=== PATIENT | male | born 1985 | race Caucasian/White ===

== ENCOUNTER 2019-08-25 15:17 | Emergency (ER) | payer OTHER ==
[~2019-08-25] VITALS: Ht 175.3 cm; Wt 77.1 kg
[2019-08-25] MEDS ORDERED: LORAZEPAM INJ 2 MG/ML VIAL IM ONE (16:00)
[2019-08-25 16:08] LABS: BASOPHILS % (AUTO) 0.8 % (0.0-2.0); EOSINOPHILS % (AUTO) 1.3 % (0.0-6.0); HEMATOCRIT 44 % (39-51); HEMOGLOBIN 15.1 g/dL (13.5-17.5); LYMPHOCYTES # (AUTO) 2.1 /CMM (0.8-4.8); LYMPHOCYTES % (AUTO) 33.9 % (20.0-44.0); MEAN CORPUSCULAR HGB CONC 34 g/dl (31.0-36.0); MEAN CORPUSCULAR VOLUME 96 fL (80-96); MONOCYTES # (AUTO) 0.7 /CMM (0.1-1.30); MONOCYTES % (AUTO) 10.9 % (2.0-12.0); NEUTROPHILS # (AUTO) 3.3 /CMM (1.8-8.9); NEUTROPHILS % (AUTO) 53.1 % (43.0-81.0); PLATELET COUNT (AUTO) 225 /CMM (150-450); RED BLOOD CELL COUNT(AUTO) 4.62 MIL/uL (4.5-6.0); WHITE BLOOD COUNT (AUTO) 6.2 K/uL (4.3-11.0)
[2019-08-25 16:10] LABS: BILIRUBIN,URINE Negative (NEGATIVE); BLOOD, URINE Negative Ery/uL (NEGATIVE); COLOR,URINE Yellow (YELLOW); KETONES,URINE Trace (NEGATIVE); LEUKOCYTE ESTERASE ,URINE Negative (NEGATIVE); NITRITE, URINE Negative (NEGATIVE); PROTEIN,URINE Negative (NEGATIVE); UGLUCOSE Negative (NEGATIVE)
[2019-08-25 16:13] LABS: APPEARANCE,URINE HAZY (CLEAR)
[2019-08-25 16:14] LABS: BACTERIA,URINE Rare /HPF (None Seen); RBC,URINE 0-2 /HPF (0-2); SQUAMOUS EPITHELIAL CELL,UR Rare /HPF (None Seen); URINE AMORPHOUS PHOSPHATES Moderate /HPF (None Seen); WBC,URINE 0-2 /HPF (0-3)
[2019-08-25] MEDS ORDERED: LORAZEPAM INJ 2 MG/ML VIAL ONE (16:15)
--- NOTE | 2019-08-25 16:29 | NUR ---
c/o depression, SI +plan "overdose on heroin.". PT AAOX3, VSS. RR EVEN & UNLABORED. DENIES CP, SOB, DIZZINESS, N/V @ THIS TIME. PT SEEN & EVAL'D BY JORGE ARREOLA. WILL CONT TO MONITOR.
[2019-08-25 16:32] LABS: ALANINE AMINOTRANSFERASE 198 U/L (12-78); ALBUMIN 4.2 g/dL (3.4-5.0); ALCOHOL, BLOOD < 3 mg/dL (0-0); ALKALINE PHOSPHATASE 64 U/L (46-116); ASPARTATE AMINOTRANSFERASE 75 U/L (15-37); BILIRUBIN,DIRECT 0.1 mg/dL (0.0-0.2); BILIRUBIN,TOTAL 0.2 mg/dL (0.2-1.0); CALCIUM, SERUM 8.8 mg/dL (8.5-10.1); CARBON DIOXIDE 28 mmol/L (21-32); CHLORIDE 102 mmol/L (98-107); CREATININE 1.3 mg/dL (0.6-1.3); GLUCOSE 71 mg/dL (74-106); POTASSIUM 3.7 mmol/L (3.5-5.1); SODIUM SERUM 138 mmol/L (136-145); TOTAL PROTEIN, SERUM 8.2 g/dL (6.4-8.2); UREA NITROGEN, BLOOD 18 mg/dL (7-18)
[2019-08-25 16:33] LABS: SALICYLATE < 2.8 mg/dL (2.8-20.0)
--- NOTE | 2019-08-25 17:02 | NUR ---
FAXED CLINICALS TO [facility] INTAKE
--- NOTE | 2019-08-25 18:13 | NUR ---
PT CALM & COOPERATIVE, EATING A MEAL, NAD NOTED @ THIS TIME. WILL CONT TO MONITOR.
--- NOTE | 2019-08-25 18:45 | NUR ---
SPOKE TO GALINDO GORE AT [facility] INTAKE, RECEIVED CLINICALS, NO BEDS UNTIL TOMORROW MORNING WITH NO PLANNED DISCHARGES TONIGHT.
[2019-08-25] MEDS ORDERED: ACETAMINOPHEN ES 500 MG TABLET ONE (20:43)
--- NOTE | 2019-08-25 20:51 | NUR ---
[employer] P[employer].
[2019-08-25] MEDS ORDERED: ACETAMINOPHEN ES 500 MG TABLET PO ONE (21:00)
--- NOTE | 2019-08-25 22:56 | NUR ---
PER [employer] GILES. PAPERWORK FAXED TO [facility]. WILL HAVE BEDS AVAILABLE IN THE MORNING.
[2019-08-25 23:09] VITALS: BP 115/78
--- NOTE | 2019-08-26 01:05 | NUR ---
REPORT GIVEN TO OSCAR MEDLEY.
== END 2019-08-26 01:26 | disposition short-term general hospital (02) ==
LOC: ER 15:17
DX: F19.10 Other psychoactive substance abuse, uncomplicated (principal); R45.851 Suicidal ideations; F32.9 Major depressive disorder, single episode, unspecified; R74.0 Nonspecific elevation of levels of transaminase and lactic acid dehydrogenase [LDH]; F43.10 Post-traumatic stress disorder, unspecified; R56.9 Unspecified convulsions; Z98.890 Other specified postprocedural states; Z88.6 Allergy status to analgesic agent
CPT/HCPCS: 36415; 80048; 80076; 80305; 80307; 80329; 81001; 85025; 96372; 99285; G0480; J2060; 81000-TC